=== PATIENT | female | born 1985 | race Caucasian/White ===

== ENCOUNTER 2016-04-23 12:01 | Emergency (ER) | payer SELFPAY ==
[~2016-04-23] VITALS: Ht 154.9 cm; Wt 67.5 kg
[2016-04-23 12:05] VITALS: Ht 154.9 cm; Wt 67.5 kg
--- NOTE | 2016-04-23 15:11 | RADRPT ---
PROCEDURE: US OB. CLINICAL INDICATION: . Vaginal bleeding. TECHNIQUE: Transabdominal and transvaginal imaging of the gravid uterus was performed. Images are reviewed on a high-resolution PACS workstation. COMPARISON: None available. FINDINGS: Assigned due date is 11/03/2016. Estimated gestational age by assigned due date is 12 weeks 2 days. Twin intrauterine is identified. Fetus A: Gestational mean sac diameter measures 7.7 cm. The crown-rump length equals 6.9 cm. The estimated gestational age equals 13 weeks 1 day by ultrasound criteria. Normal cardiac activity is identified with heart rate of 163 bpm. No subchorionic hemorrhage is identified. Fetus B: Gestational mean sac diameter measures 6.7 cm. The crown-rump length equals 7.3 cm. The estimated gestational age equals 13 weeks 3 days by ultrasound criteria. Normal cardiac activity is identified with heart rate of 182 bpm. No subchorionic hemorrhage is identified. The ovaries are unremarkable. IMPRESSION: 1. Twin live intrauterine pregnancies with an estimated gestational age of 13 weeks 1 day and 13 we eks 3 days by ultrasound criteria and an estimated date of delivery of 10/26/2016. RPTAT: QQ .Cali Mario MD, Date Time Electronically viewed and signed by .Cali Mario MD, on 04/23/2016 15:10 .M/
[2016-04-23 15:23] LABS: BASOPHIL # 0.1 10^3/ul (0.0-0.1); BASOPHILS % 0.4 % (0.0-2.0); EOSINOPHILS # 0.1 10^3/ul (0.0-0.5); EOSINOPHILS % 0.8 % (0.0-7.0); HEMATOCRIT 38.6 % (37.0-47.0); HEMOGLOBIN 13.2 g/dl (12.0-16.0); LYMPHOCYTES # 2.3 10^3/ul (0.8-2.9); LYMPHOCYTES % 18.3 % (15.0-51.0); MEAN CORPUSCULAR HEMOGLOBIN 29.6 pg (29.0-33.0); MEAN CORPUSCULAR HGB CONC 34.2 g/dl (32.0-37.0); MEAN CORPUSCULAR VOLUME 86.7 fl (82.0-101.0); MONOCYTE # 0.6 10^3/ul (0.3-0.9); MONOCYTES % 4.7 % (0.0-11.0); NEUTROPHIL # 9.6 10^3/ul (1.6-7.5); NEUTROPHILS % 75.8 % (39.0-77.0); PLATELET COUNT 273 10^3/UL (140-440); RED BLOOD COUNT 4.45 10^6/ul (4.20-5.40); RED CELL DISTRIBUTION WIDTH 12.9 % (11.5-14.5); UNCORRECTED WBC 12.7 10^3/ul (4.8-10.8); WHITE BLOOD COUNT 12.7 10^3/ul (4.8-10.8)
[2016-04-23 15:24] LABS: ADD UMIC YES; URINE BILIRUBIN (Dip) NEGATIVE (NEGATIVE); URINE BLOOD (Dip) 2+ (NEGATIVE); URINE COLOR LT. YELLOW (YELLOW); URINE GLUCOSE (Dip) NEGATIVE (NEGATIVE); URINE KETONES (Dip) TRACE (NEGATIVE); URINE LEUKOCYTE ESTERASE (Dip) NEGATIVE (NEGATIVE); URINE NITRITE (Dip) NEGATIVE (NEGATIVE); URINE TOTAL PROTEIN (Dip) NEGATIVE (NEGATIVE); URINE UROBILINOGEN (Dip) 0.2 E.U./dL (0.1-1.0)
[2016-04-23 15:32] LABS: CONDITION 1
[2016-04-23] MEDS ORDERED: ACET325T33 PO (15:52)
--- NOTE | 2016-04-23 15:56 | ERD ---
ER Documentation Chief Complaint Date/Time DATE: 04/23/16 TIME: 15:54 Chief Complaint pt bib family with c/o vag bleeding x 2 days 13 wk preg HPI 30-year-old female with no significant past medical history is a to the ED stating that she has slight vaginal spotting that started earlier today. Reports that she has slight pelvic cramping. States that her INFORMATION SYSTEMS OPERATOR is at the [facility]. Reports that she is having twins. Denies any abdominal pain , nausea, vomiting, chest pain, shortness of breath, vaginal discharge, dysuria , flank pain. States that her last menses was sometime in November 2015. ROS All systems reviewed and are negative except as per history of present illness. Medications Home Meds Active Scripts Acetaminophen* (Tylenol*) 325 Mg Tablet, 1 TAB PO Q8 Y for PAIN AND OR ELEVATED TEMP, #20 TAB Prov:DEANDRA STEEN PA-C 04/23/16 Allergies Allergies: Coded Allergies: No Known Allergy (Unverified , 04/23/16) PMhx/Soc Medical and Surgical Hx: pt denies Medical Hx, pt denies Surgical Hx Hx Alcohol Use: No Hx Substance Use: No Hx Tobacco Use: No Smoking Status: Never smoker Physical Exam Vitals Vital Signs Date Time Temp Pulse Resp B/P Pulse Ox O2 Delivery O2 Flow Rate FiO2 04/23/16 12:05 98.3 89 18 136/70 98 Physical Exam Const: Est-hhg-ksfhnzvch, well-nourished. In no acute distress. Head: Atraumatic, normocephalic Eyes: Normal Conjunctiva without injection. No purulent discharge. ENT: Normal external ear, nose. Moist oropharynx without tonsillar exudates. Non -erythematous pharynx. Uvula midline. No drooling. No trismus. Neck: No cervical midline tenderness. Full range of motion. No meningismus. No cervical lymphadenopathy. No JVD. Resp: Clear to auscultation bilaterally. No wheezing, rhonchi, rales, or crackles. No accessory muscle use. No retractions. Cardio: Regular rate and rhythm. No murmurs, rubs or gallops. Abd: Soft, nontender, non distended. Normal bowel sounds. No palpable masses. No rebound tenderness. No guarding. Negative McBurney's point. Negative psoas sign. Negative obturator sign. Skin: No petechiae or rashes Back: No midline tenderness. No CVA tenderness. Ext: No cyanosis, or edema. Neur: Awake and alert. Normal gait. Normal coordination. Psych: Normal Mood and Affect Result Diagram: 04/23/16 1440 Results 24 hrs Laboratory Tests Test 04/23/16 14:40 04/23/16 14:43 Basophils # 0.110^3/ul Basophils % 0.4% Eosinophils # 0.110^3/ul Eosinophils % 0.8% Hematocrit 38.6% Hemoglobin 13.2g/dl Lymphocytes # 2.310^3/ul Lymphocytes % 18.3% Mean Corpuscular Hemoglobin 29.6pg Mean Corpuscular Hemoglobin Concent 34.2g/dl Mean Corpuscular Volume 86.7fl Mean Platelet Volume 8.0fl Monocytes # 0.610^3/ul Monocytes % 4.7% Neutrophils # 9.610^3/ul Neutrophils % 75.8% Nucleated Red Blood Cells # 0.010^3/ul Nucleated Red Blood Cells % 0.0/100WBC Platelet Count 53533^3/UL Red Blood Count 4.4510^6/ul Red Cell Distribution Width 12.9% White Blood Count 12.710^3/ul Urine Bilirubin NEGATIVE Urine Clarity CLEAR Urine Color LT. YELLOW Urine Glucose NEGATIVE% Urine Hemoglobin 2+ Urine Ketones TRACE Urine Leukocyte Esterase NEGATIVE Urine Microscopic RBC Pending Urine Microscopic WBC Pending Urine Nitrite NEGATIVE Urine Specific [place] 1.010 Urine Total Protein NEGATIVE Urine Urobilinogen 0.2 E.U./dL Urine pH 6.0 Procedures/MDM This is a 30-year-old female with no significant past medical history is a presents the ED complaining of vaginal spotting. Patient is afebrile and nontoxic-appearing. Patient has normal vital signs. An ultrasound, beta-hCG, CBC, type and RH, UA was ordered to evaluate patient. CBC: No evidence of severe infection or anemia Urine: No elevation in nitrites, leukocyte esterase, hematuria. No evidence of UTI Rh: A positive No indication for Rhogam at this time. beta Hcg: PROCEDURE: US OB. CLINICAL INDICATION: . Vaginal bleeding. TECHNIQUE: Transabdominal and transvaginal imaging of the gravid uterus was performed. Images are reviewed on a high-resolution PACS workstation. COMPARISON: None available. FINDINGS: Assigned due date is 11/03/2016. Estimated gestational age by assigned due date is 12 weeks 2 days. Twin intrauterine is identified. Fetus A: Gestational mean sac diameter measures 7.7 cm. The crown-rump length equals 6.9 cm. The estimated gestational age equals 13 weeks 1 day by ultrasound criteria. Normal cardiac activity is identified with heart rate of 163 bpm. No subchorionic hemorrhage is identified. Fetus B: Gestational mean sac diameter measures 6.7 cm. The crown-rump length equals 7.3 cm. The estimated gestational age equals 13 weeks 3 days by ultrasound criteria. Normal cardiac activity is identified with heart rate of 182 bpm. No subchorionic hemorrhage is identified. The ovaries are unremarkable. IMPRESSION: 1. Twin live intrauterine pregnancies with an estimated gestational age of 13 weeks 1 day and 13 weeks 3 days by ultrasound criteria and an estimated date of delivery of 10/26/2016. Patient has twin live intrauterine is noted on her ultrasound. Patient's bleeding symptoms have stabilized while in the department. Low suspicion for symptomatic anemia, ectopic , sepsis, PID, appendicitis, ovarian torsion, tubo-ovarian abscess, surgical abdomen, or other emergent conditions. Patient was educated that there is a risk for threatened . Discharge: Tylenol Patient to follow up with INFORMATION SYSTEMS OPERATOR in 2 days for further evaluation and treatment. Patient is to return sooner to the ED for any worsening symptoms. Patient's questions were answered. Patient understood and agreed with discharge plan. Departure Diagnosis: Primary Impression: Vaginal bleeding before 22 weeks gestation Additional Impression: Twins Condition: Stable Patient Instructions: Vaginal Bleed in Referrals: [facility] YOU HAVE RECEIVED A MEDICAL SCREENING EXAM AND THE RESULTS INDICATE THAT YOU DO NOT HAVE A CONDITION THAT REQUIRES URGENT TREATMENT IN THE EMERGENCY DEPARTMENT. FURTHER EVALUATION AND TREATMENT OF YOUR CONDITION CAN WAIT UNTIL YOU ARE SEEN IN YOUR DOCTORS OFFICE WITHIN THE NEXT 1-2 DAYS. IT IS YOUR RESPONSIBILITY TO MAKE AN APPOINTMENT FOR FOLOW-UP CARE. IF YOU HAVE A PRIMARY DOCTOR --you should call your primary doctor and schedule an appointment IF YOU DO NOT HAVE A PRIMARY DOCTOR YOU CAN CALL OUR PHYSICIAN REFERRAL HOTLINE AT IF YOU CAN NOT AFFORD TO SEE A PHYSICIAN YOU CAN CHOSE FROM THE FOLLOWING [facility] [address] [facility]. [facility]818) [phone] [facility]. [facility] [address] [facility] [address] [facility]. [facility] [phone] [facility] [facility]. [address] [facility]. [facility] YOU HAVE RECEIVED A MEDICAL SCREENING EXAM AND THE RESULTS INDICATE THAT YOU DO NOT HAVE A CONDITION THAT REQUIRES URGENT TREATMENT IN THE EMERGENCY DEPARTMENT. FURTHER EVALUATION AND TREATMENT OF YOUR CONDITION CAN WAIT UNTIL YOU ARE SEEN IN YOUR DOCTORS OFFICE WITHIN THE NEXT 1-2 DAYS. IT IS YOUR RESPONSIBILITY TO MAKE AN APPOINTMENT FOR FOLOW-UP CARE. IF YOU HAVE A PRIMARY DOCTOR --you should call your primary doctor and schedule and appointment IF YOU DO NOT HAVE A PRIMARY DOCTOR YOU CAN CALL OUR PHYSICIAN REFERRAL HOTLINE AT . IF YOU CAN NOT AFFORD TO SEE A PHYSICIAN YOU CAN CHOSE FROM THE FOLLOWING [facility] INSTITUTIONS: [facility] [address] [place] [address] [facility] [address] [place] [address] [facility] [address] [place] [address] INFORMATION SYSTEMS OPER[place] [address] [facility] [address] [place], [place] [phone] OFFICE FAX [facility] [address] [place], [place] [phone] MALONE [address] [place], [place] [id number] N[place]A [place]ITTON [address] [facility], [address] [address] [address] [address] [place], [place] [phone] [facility] [address] [place] [address] [address] [facility] [id number] - DR MEHTA, GUDELIA [address], [facility] [phone] DR KIRBY, ELVIS [address] [facility]. [address], [facility] [phone] DR MCCRAY, FARID [address] [place] [address] [facility] Hours: 8:00 am - 5:00 pm Additional Instructions: Seguimiento con OB / AB INITIO ETL DEVELOPER en 2 stevenson para atencin y tratamiento adicionales Regrese a estas instalaciones si no se mejora elenita esperbamos o elenita le dijimos. DEANDRA STEEN PA-C Apr 23, 2016 15:56
[2016-04-23 16:06] LABS: SQUAMOUS EPITHELIAL CELL,UR FEW; URINE RBCS 0-2 /HPF (0)
[2016-04-23 16:40] VITALS: BP 130/65; PULSE 84; RESP 18; TEMP 98.1
== END 2016-04-23 16:40 | disposition home or self-care (01) ==
LOC: FTE 12:01
DX: O20.9 Hemorrhage in early pregnancy, unspecified (principal); O30.001 Twin pregnancy, unspecified number of placenta and unspecified number of amniotic sacs, first trimester; R10.2 Pelvic and perineal pain; Z3A.13 13 weeks gestation of pregnancy
CPT/HCPCS: 36415; 76801; 81001; 81003; 84702; 85025; 86900; 86901

== ENCOUNTER 2016-09-26 15:28 | Outpatient (CLI) | payer MEDICAID ==
[~2016-09-26] VITALS: Ht 149.9 cm; Wt 85.0 kg
[~2016-09-26 15:28] MED LIST: ACET325T33 PO
--- NOTE | 2016-09-26 16:11 | RADRPT ---
PROCEDURE: US OB biophysical profile. CLINICAL INDICATION: decreased movements TECHNIQUE: Multiple sonographic images of the pelvis were obtained. The images were reviewed on a PACS workstation. COMPARISON: No prior studies are available for comparison. FINDINGS: There is a twin viable intrauterine gestation. Twin A Cardiac activity is present with 130 beats per minute. There is a vertex presentation. The placenta is anterior. MVP = 3.1 cm Biophysical profile: movement 2/2 tone 2/2. breathing 2/2 ALEKSANDRA 2/2 Total 8/8 Twin B Cardiac activity is present with 132 beats per minute. There is a vertex presentation. The placenta is anterior. MVP = 3.7 cm Biophysical profile: movement 2/2 tone 2/2. breathing 2/2 ALEKSANDRA 2/2 Total 8/8 RPTAT: AA . IMPRESSION: Normal biophysical profile for twin gestation . . .Fletcher Bryant MD, MD Date Time Electronically viewed and signed by .Fletcher Bryant MD, MD on 09/26/2016 16:11 .S/
--- NOTE | 2016-09-26 16:15 | RADRPT ---
PROCEDURE: US OB. CLINICAL INDICATION: Size and dates , contractions TECHNIQUE: Multiple sonographic images of the pelvis were obtained. The images were reviewed on a PACS workstation. COMPARISON: No prior studies are available for comparison. FINDINGS: There is a twin viable intrauterine gestation. The placenta is anterior. There is no evidence for an abruption or placenta previa. BABY A Cardiac activity is present with 122 beats per minute. There is a vertex presentation. Measurements were made in order to determine age. The results are as follows: BPD =9.0 cm HC =31.3 cm AC =33.9 cm FL =7.1 cm The EFW = 3112 g, 84.9%. BABY B Cardiac activity is present with 148 beats per minute. There is a vertex presentation. Measurements were made in order to determine age. The results are as follows: BPD =9.1 cm HC =33.2 cm AC =34.1 cm FL =7.1 cm The EFW = 3208 g, 90.4%. Estimated gestational age of approximately 36 weeks and 4 days and 37 weeks and 1 day. The estimated date of delivery is 10/20/2016 and 10/16/2016, based on ultrasound measurements. RPTAT: AA IMPRESSION: Twin viable intrauterine gestation of approximately 36 weeks and 4 days and 37 weeks and 1 day. .Fletcher Bryant MD, MD Date Time Electronically viewed and signed by .Fletcher Bryant MD, MD on 09/26/2016 16:14 .S/
[2016-09-26 16:30] VITALS: Ht 149.9 cm; Wt 85.0 kg
[2016-09-26 16:35] VITALS: BP 118/70; PULSE 20
--- NOTE | 2016-09-26 17:25 | QN ---
Documentation Comment g1po 35 weeks twins vss exam wnl us wnl aga nst reactive a/p iup 35 weeks twins false labor [facility] KATARZYNA CARDONA MD Sep 26, 2016 17:25
--- NOTE | 2016-09-26 17:30 | TRIAGE ---
OB Triage Datetime Report Generated by CPN: 09/26/2016 17:30 Datetime: 09/26/2016 17:08 Vaginal Exam Dilatation (cms): 0.0 Effacement (%): 30 Station: -4 Exam By: MAY Vaginal Bleeding: None Cervix, Position: Posterior Datetime: 09/26/2016 17:05 Labor Evaluation Frequency: X3 Monitor Mode: External Duration (sec)2399: 60-90 Quality: Mild Pattern: Normal: <= 5 Contractions in 10 Minutes Resting Tone [place]: Relaxed Heart Rate FHR Baseline Rate: 120 Monitor Mode: External US FHR Baseline Changes: No Baseline Change Variability: Moderate 6-25 bpm Accelerations: 15X15 Decelerations: None Category: Category I Pain Assessment Pain Scale: 0 Pain Presence: None/Denies Pain Type: N/A Pain Goal: 2 Datetime: 09/26/2016 16:35 Labor Evaluation Frequency: X3 Monitor Mode: External Duration (sec)2399: 80 Quality: Mild Pattern: Normal: <= 5 Contractions in 10 Minutes Resting Tone [place]: Relaxed Heart Rate FHR Baseline Rate: 120 Monitor Mode: External US FHR Baseline Changes: No Baseline Change Variability: Moderate 6-25 bpm Accelerations: 15X15 Decelerations: Variable Category: Category I Pain Assessment Pain Scale: 0 Pain Presence: None/Denies Pain Type: N/A Pain Goal: 0 Datetime: 09/26/2016 16:27 EGA: 35.5 Datetime: 09/26/2016 16:00 Time of Arrival: 09/26/2016 15:25 Arrived By: Ambulatory Arrived From: Office Chief Complaint: SENT FROM CLINIC Movement: Present Contractions: Denies/Absent Rupture of Membranes: Denies Vaginal Bleeding: None Vaginal Discharge: Denies Recent Sexual Intercouse: Denies Abdominal Trauma: Not Applicable Patient Complaints: None Time Provider Notified: 09/26/2016 17:02 Provider Notified: VITALIY CASTILLO Initial Plan: NST, BPP, EFW Monitor Mode: External Monitor Mode: External US Pain Assessment Pain Scale: 0 Pain Presence: None/Denies Pain Type: N/A Pain Goal: 0 Membrane Status: Intact Datetime: 09/26/2016 15:43 Stage of : OB Triage
== END 2016-09-26 17:20 | disposition home or self-care (01) ==
LOC: OBT 15:28 → L-D 15:29 → OBT 17:20
PROVIDERS: ATTEND Obstetrics & Gynecology
DX: O30.003 Twin pregnancy, unspecified number of placenta and unspecified number of amniotic sacs, third trimester (principal); Z3A.35 35 weeks gestation of pregnancy
CPT/HCPCS: 76815; 76818; Z7500; G0463

== ENCOUNTER 2016-09-29 13:37 | Outpatient (CLI) | payer MEDICAID ==
[~2016-09-29] VITALS: Ht 152.4 cm; Wt 84.4 kg
[2016-09-29 13:56] VITALS: Ht 152.4 cm; Wt 84.4 kg
[2016-09-29] MEDS ORDERED: PRENAT PO (13:56)
[2016-09-29 13:57] VITALS: BP 112/62; PULSE 82; RESP 18
[2016-09-29] MEDS ORDERED: LACTATED RINGER'S 1,000 ML IV ONE (15:00)
[2016-09-29] MEDS ORDERED: LACTATED RINGER'S 1,000 ML IV SCH (15:30)
--- NOTE | 2016-09-29 16:08 | RADRPT ---
PROCEDURE: US biophysical profile. CLINICAL INDICATION: Twin gestation. Decreased motion. TECHNIQUE: Multiple sonographic images of the uterus were obtained. The images were revi ewed on a PACS workstation. COMPARISON: 09/26/2016. FINDINGS: There is a live twin intrauterine gestation. Fetus A: heart rate is 148 beats per minute. The position is cephalic. The placenta is anterior grade II. The single largest pocket of amniotic fluid is 4.1 cm. Breathing Movement: 2 Gross Body Movement: 2 Tone: 2 Qualitative Amniotic Fluid Volume: 2 TOTAL: 8 Fetus B: heart rate is 121 beats per minute. The position is breech. The placenta is anterior grade II. The single largest pocket of amniotic fluid is 3.4 cm. Breathing Movement: 2 Gross Body Movement: 2 Tone: 2 Qualitative Amniotic Fluid Volume: 2 TOTAL: 8 IMPRESSION: 1. Fetus A biophysical score is 8/8. 2. Fetus B biophysical score is 8/8. RPTAT: QQ .Santos Barba MD, MD Date Time Electronically viewed and signed by .Santos Barba MD, on 09/29/2016 16:07 .R/
--- NOTE | 2016-09-29 18:04 | CONS ---
Date/Time of Note Date/Time of Note DATE: 09/29/16 TIME: 17:56 Consultation Date/Type/Reason Admit Date/Time September 29, 2016 OB triage consult Reason for Consultation This patient is a 31 years old 1 para 0 with estimated date of confinement of October 26, 2016 which makes her 36 weeks and 1 day . This pregnancies twins and she came to triage with complaint of contractions and to rule out labor. On examination she is a well-developed well-nourished lady twins in last trimester Her general vital signs are normal with blood pressure of 112/62, pulse 62 respiration 18, temperature 96.5, She has 1+ pitting edema of her lower extremity she describes her pain at 5/10 with 10 being the highest level of pain. heart tone on both of these babies are normal On pelvic examination her cervix was closed thick and long Current Medications Medications (Trade) Dose Ordered Sig/Josh Route PRN Reason Start Time Stop Time Status Last Admin Dose Admin Lactated Ringer's 1,000 ml @ 1,000 mls/hr Q1H ONCE IV 09/29/16 15:00 09/29/16 15:59 DC 09/29/16 15:18 1,000 MLS/HR Lactated Ringer's (Lr) 1,000 ml @ 125 mls/hr Q8H IV 09/29/16 15:30 09/29/16 15:18 125 MLS/HR Constitutional: No chills, No diaphoresis, No disoriented, No febrile, No improved, No no complaints, No other, No poor po, No requiring IVF, No requiring O2 Eyes: No discharge, No no complaints, No other, No pain, No redness, No visual change ENT: No bleeding, No congestion, No discharge, No dysphagia, No no complaints, No other, No pain, No sore throat Respiratory: No cough, No no complaints, No other, No pain, No pleuritic pain, No shortness of breath, No sputum, No wheezing Cardiovascular: other (Heart normal sinus rhythm no murmur), No chest pain, No edema, No lightheadedness, No no complaints, No orthopenea , No palpitations, No paroxysmal nocturnal dyspnea Gastrointestinal: No blood, No constipation, No decreased appetite, No diarrhea , No flatus, No nausea, No no complaints, No other, No pain, No passing stool, No vomiting Genitourinary: other, No bleeding, No discharge, No dysuria, No flank pain, No hematuria, No no complaints Musculoskeletal: No back pain, No bone/joint pain, No neck pain, No no complaints, No other, No restricted range of motion, No swelling Skin: No bruising, No erythema, No laceration, No no complaints, No other, No pruritis, No rash, No skin lesions Neurologic: other (Knee-jerk reflexes normal), No confusion, No dizziness, No focal-weakness, No headache, No no complaints , No seizure, No syncope Endocrine: No dry skin, No no complaints, No other, No polydypsia, No polyuria , No temp intolerance Lymphatic: other, No adenopathy, No lymphadema, No no complaints, No tender nodes Additional Comments We have done an ultrasound study the result on fetus a was a cephalic presentation with heartbeat of 148 bpm placenta was anterior grade 2 and single largest pocket of amniotic fluid was 4.1 cm biophysical profile on this baby was 8 or 8 on baby B heartbeat 121 position was breech placenta was anterior and the largest pocket of amniotic fluid was 3.4 cm in and its biophysical profile also was 8/8 On her heart tracing on both babies the tracing were reactive with good variability and acceleration ,no sign of deceleration. There were occasional contraction every 5-10 minutes Disposition with this positive finding patient was advised to go home and to rest in case of more frequent contractions or evidence of rupture membrane return to the clinic immediately Social History Smoking Status: Never smoker Exam/Review of Systems Vital Signs Vitals Vital Signs Date Time Temp Pulse Resp B/P Pulse Ox O2 Delivery O2 Flow Rate FiO2 09/29/16 13:57 98.5 82 18 112/62 Room Air Medications Medications Current Medications Lactated Ringer's (Lr) 1,000 ml @ 125 mls/hr Q8H IV Last administered on t 15:18; Admin Dose 125 MLS/HR; Start 09/29/16 at 15:30 NOLA DECKER MD Sep 29, 2016 18:04
--- NOTE | 2016-09-29 18:41 | TRIAGE ---
OB Triage Datetime Report Generated by CPN: 09/29/2016 18:41 Datetime: 09/29/2016 17:00 Heart Rate FHR Baseline Rate: 125 Monitor Mode: External US FHR Baseline Changes: No Baseline Change Variability: Moderate 6-25 bpm Accelerations: 15X15 Decelerations: None Category: Category I Datetime: 09/29/2016 16:37 Vaginal Exam Dilatation (cms): 0.0 Effacement (%): 0 Station: -3 Exam By: AO Datetime: 09/29/2016 15:59 Heart Rate FHR Baseline Rate: 130 Monitor Mode: External US FHR Baseline Changes: No Baseline Change Variability: Moderate 6-25 bpm Accelerations: 15X15 Decelerations: None Category: Category I Datetime: 09/29/2016 15:58 Pain Assessment Pain Scale: 0 Pain Presence: Intermittent Pain Type: N/A Datetime: 09/29/2016 15:01 Labor Evaluation Frequency: irregular Monitor Mode: External Duration (sec)2399: 50-100 Quality: Moderate Pattern: Normal: <= 5 Contractions in 10 Minutes Resting Tone [place]: Relaxed Heart Rate FHR Baseline Rate: 135 Monitor Mode: External US FHR Baseline Changes: No Baseline Change Variability: Moderate 6-25 bpm Accelerations: 15X15 Decelerations: None Category: Category I Datetime: 09/29/2016 14:12 Time Provider Notified: 09/29/2016 14:12 Datetime: 09/29/2016 14:00 Assessment Type: Admission Assessment Maternal Assessment Level of Consciousness: Fully Conscious DTR's/Clonus: DTRs 2+; No Clonus Headache: Denies Blurred Vision: No Respiratory Effort: Unlabored; Regular Rhythm; Equal Expansion Breath Sounds, Left: Clear and Equal Breath Sounds, Right: Clear and Equal Nausea/Vomiting: Denies RUQ Epigastric Pain: Denies Lower Extremities Edema: Bilateral Lower Extremities Degree: 1+ Upper Extremities Edema: None Degree: None Facial Edema: None Fall Risk Assessment History of Falling: (0) No Secondary Diagnosis: (0) No Ambulatory Aid: (0) Bedrest/Nurse Assist IV Therapy: (0) No Gait: (0) Normal/Bedrest/Immobile Mental Status: (0) Oriented to Own Ability Fall Score: 0 Fall Risk Score Definition: No Risk: No action required Datetime: 09/29/2016 13:59 Time of Arrival: 09/29/2016 13:30 EGA: 36.1 Arrived By: Ambulatory Arrived From: Home Chief Complaint: UC'S SINCE 0600 Movement: Present Contractions: Irregular Time Contractions Began: 09/29/2016 06:00 Rupture of Membranes: Denies Vaginal Bleeding: None Vaginal Discharge: Denies Recent Sexual Intercouse: Denies Abdominal Trauma: Not Applicable Patient Complaints: Contractions; Cramping Time Provider Notified: 09/29/2016 14:12 Provider Notified: DR CASTILLO Initial Plan: NST, VE Datetime: 09/26/2016 16:27 EGA: 35.5
== END 2016-09-29 18:30 | disposition home or self-care (01) ==
LOC: OBT 13:37 → L-D 13:38 → OBT 18:30
PROVIDERS: ATTEND Obstetrics & Gynecology
DX: O62.9 Abnormality of forces of labor, unspecified (principal); Z3A.36 36 weeks gestation of pregnancy
CPT/HCPCS: 76818; 96365; J7120; Z7500; G0463

== ENCOUNTER 2016-10-06 20:01 | Outpatient (CLI) | payer MEDICAID ==
[~2016-10-06] VITALS: Ht 147.3 cm; Wt 87.1 kg
[~2016-10-06 20:01] MED LIST changes: -ACET325T33 PO; +PRENAT PO
[2016-10-06 20:32] VITALS: BP 121/78; PULSE 83; RESP 18; Ht 147.3 cm; Wt 87.1 kg
--- NOTE | 2016-10-06 22:30 | RADRPT ---
PROCEDURE: ULTRASOUND OBSTETRICAL CLINICAL INDICATION: 31-year-old female with twin gestation and decreased movement for size and date determination. TECHNIQUE: Multiple sonographic images of the pelvis were obtained. The images were reviewed on a PACS workstation. COMPARISON: Ultrasound OB September 29, 2016. FINDINGS: The cervix is visualized. There is a viable twin intrauterine gestation. TWIN A: Cardiac activity is present with 144 beats per minute. There is a breech maternal right presentation . Measurements were made in order to determine age. The results are as follows: BPD = 9.14 cm, HC = 33.85 cm, AC = 34.70 cm, FL = 7.22 cm. This yields and estimated gestational ag e of approximately 37 weeks 6 days. The estimated date of delivery is October 21, 2016. The EFW = 33 90 +/- 509 g (7 lb 8 oz). The GP is 80%. The placenta is anterior. There is no evidence for an abruption or placenta previa. The amniotic fluid maximal vertical pocket of 5.3 cm. TWIN B: Cardiac activity is present with 132 beats per minute. There is a breech maternal left presentation. Measurements were made in order to determine age. The results are as follows: BPD = 9.14 cm, HC = 32.78 cm, AC = 34.43 cm, FL = 6.99 cm. This yields and estimated gestational ag e of approximately 37 weeks 1 day. The estimated date of delivery is October 26, 2016. The EFW = 322 3 +/- 483 g (7 lb 2 oz). The GP is 66%. There is questionable short femoral length without signifi cant interval growth compared to the prior study however the ratios are within normal limits. The placenta is anterior. There is no evidence for an abruption or placenta previa. The amniotic fluid maximal vertical pocket is 4.7 cm. IMPRESSION: Viable twin uterine gestations. Twin B has a questionable short femoral length. .Trevon Garcia MD, Date Time Electronically viewed and signed by .Trevon Garcia MD, MD on 10/06/2016 22:29 .M/
--- NOTE | 2016-10-06 22:33 | RADRPT ---
PROCEDURE: ULTRASOUND BIOPHYSICAL PROFILE CLINICAL INDICATION: 31-year-old female with twin gestations for viability. TECHNIQUE: Multiple sonographic images were obtained in order to perform a biophysical profile The images were reviewed on a PACS workstation. COMPARISON: Ultrasound OB obtained concurrently; ultrasound biophysical profile September 29, 2016. FINDINGS: There is a viable twin intrauterine gestation. TWIN A: There is a breech maternal right presentation. Cardiac activity is present at 117 beats per minute. The placenta is anterior. The results of the biophysical profile are as follows: breathing movement = 2/2 Gross body movement = 2/2 tone = 2/2 Qualitative amniotic fluid volume = 2/2 This yields a biophysical profile score of 8/8. TWIN B: There is a breech maternal left presentation. Cardiac activity is present at 112 beats per minute. The placenta is anterior. The results of the biophysical profile are as follows: breathing movement = 2/2 Gross body movement = 2/2 tone = 2/2 Qualitative amniotic fluid volume = 2/2 This yields a biophysical profile score of 8/8. IMPRESSION: Viable twin intrauterine gestations both with biophysical profile scores of 8/8. .Trevon Garcia MD, MD Date Time Electronically viewed and signed by .Trevon Garcia MD, MD on 10/06/2016 22:32 .M/
[2016-10-06 22:34] LABS: ADD UMIC NO; UR ASCORBIC ACID NEGATIVE (NEGATIVE); UR BACTERIA FEW /HPF (NONE SEEN); UR BILIRUBIN (Dip) NEGATIVE (NEGATIVE); UR BLOOD (Dip) NEGATIVE (NEGATIVE); UR CLARITY SLIGHTLY CLOUDY (CLEAR); UR COLOR YELLOW (YELLOW); UR GLUCOSE (Dip) NEGATIVE (NEGATIVE); UR KETONES (Dip) NEGATIVE (NEGATIVE); UR LEUKOCYTE ESTERASE (Dip) NEGATIVE Leu/ul (NEGATIVE); UR NITRITE (Dip) NEGATIVE (NEGATIVE); UR RBC 1 /HPF (0-5); UR SPECIFIC GRAVITY (Dip) 1.013 (1.003-1.030); UR SQUAMOUS EPITHELIAL CELL FEW /HPF (FEW); UR TOTAL PROTEIN (Dip) NEGATIVE (NEGATIVE); UR UROBILINOGEN (Dip) NEGATIVE (NEGATIVE)
--- NOTE | 2016-10-07 00:15 | TRIAGE ---
OB Triage Datetime Report Generated by CPN: 10/07/2016 00:15 Datetime: 10/07/2016 00:00 Comments: DIFFICULT TO TRACE Datetime: 10/06/2016 23:28 Labor Evaluation Frequency: 2-5 Monitor Mode: External Duration (sec)2399: 120 Quality: Mild Pattern: Normal: <= 5 Contractions in 10 Minutes Resting Tone [place]: Relaxed Datetime: 10/06/2016 23:00 Labor Evaluation Frequency: 6-11 Monitor Mode: External Duration (sec)2399: 120 Quality: Mild Pattern: Normal: <= 5 Contractions in 10 Minutes Resting Tone [place]: Relaxed Heart Rate FHR Baseline Rate: 125 Monitor Mode: External US FHR Baseline Changes: No Baseline Change Variability: Moderate 6-25 bpm Accelerations: 15X15 Decelerations: None Category: Category I Datetime: 10/06/2016 22:00 Labor Evaluation Frequency: IRREGULAR Heart Rate FHR Baseline Rate: 125 Monitor Mode: External US FHR Baseline Changes: No Baseline Change Variability: Moderate 6-25 bpm Accelerations: 15X15 Decelerations: None Category: Category I Datetime: 10/06/2016 21:00 Labor Evaluation Frequency: 10 Monitor Mode: External Duration (sec)2399: 100 Quality: Mild Pattern: Normal: <= 5 Contractions in 10 Minutes Resting Tone [place]: Relaxed Heart Rate FHR Baseline Rate: 145 Monitor Mode: External US FHR Baseline Changes: No Baseline Change Variability: Moderate 6-25 bpm Accelerations: 15X15 Decelerations: None Category: Category I Datetime: 10/06/2016 20:50 Vaginal Exam Dilatation (cms): 0.0 Effacement (%): 0 Station: -3 Exam By: Martha PAUL RN Vaginal Bleeding: None Cervix, Consistency: Firm Cervix, Position: Posterior Datetime: 10/06/2016 20:12 Stage of : OB Triage Time of Arrival: 10/06/2016 19:53 EGA: 37.1 Arrived By: Wheelchair Arrived From: Home Chief Complaint: US Movement: Decreased Contractions: Denies/Absent Rupture of Membranes: Denies Vaginal Bleeding: None Vaginal Discharge: Denies Recent Sexual Intercouse: Denies Abdominal Trauma: Not Applicable Patient Complaints: None (Annotations: Data stored by CPN on behalf of user) Time Provider Notified: 10/06/2016 23:00 Provider Notified: DR JONES Initial Plan: CALL MD EFSwati Maternal Assessment Level of Consciousness: Fully Conscious DTR's/Clonus: DTRs 2+; No Clonus Headache: Denies Blurred Vision: No Respiratory Effort: Unlabored; Regular Rhythm; Equal Expansion Breath Sounds, Left: Clear and Equal Breath Sounds, Right: Clear and Equal Nausea/Vomiting: Denies RUQ Epigastric Pain: Denies Lower Extremities Edema: Bilateral Lower Extremities Degree: 1+ Upper Extremities Edema: None Degree: None Facial Edema: None Temperature Route: Oral Fall Risk Assessment History of Falling: (0) No Secondary Diagnosis: (0) No Ambulatory Aid: (0) Bedrest/Nurse Assist IV Therapy: (0) No Gait: (0) Normal/Bedrest/Immobile Mental Status: (0) Oriented to Own Ability Fall Score: 0 Fall Risk Score Definition: No Risk: No action required Monitor Mode: External Monitor Mode: External US Pain Assessment Pain Scale: 0 Datetime: 09/29/2016 14:00 Fall Score: 0 Fall Risk Score Definition: No Risk: No action required Datetime: 09/29/2016 13:59 EGA: 36.1 Datetime: 09/26/2016 16:27 EGA: 35.5
--- NOTE | 2016-10-07 00:28 | TRIAGE ---
OB Triage Datetime Report Generated by CPN: 10/07/2016 00:28 Datetime: 10/06/2016 23:39 Stage of : OB Triage
--- NOTE | 2016-10-07 01:26 | PN ---
Triage Information Date/Time 10/07/109 Weeks of Gestation 37weeks twin gestation BR./BR : 1 Para: 0 Diabetes: none Hypertention: none Additional information twin gestation Objective Vital Signs Date Time Temp Pulse Resp B/P Pulse Ox O2 Delivery O2 Flow Rate FiO2 10/06/16 20:32 98.5 83 18 121/78 Room Air Heart Rate: 140's Contractions: 6-10 Minutes Apart Exam 0/0/-3 EFM reactive U.C 5-7min apart Results/Medications Results 24 hrs Laboratory Tests Test 10/06/16 21:03 Urine Color YELLOW Urine Clarity SLIGHTLY CLOUDY A Urine pH 6.0 Urine Specific [place] 1.013 Urine Ketones NEGATIVE Urine Nitrite NEGATIVE Urine Bilirubin NEGATIVE Urine Urobilinogen NEGATIVE Urine Leukocyte Esterase NEGATIVE Urine Microscopic RBC 1 Urine Microscopic WBC 1 Urine Squamous Epithelial Cells FEW Urine Bacteria FEW A Urine Hemoglobin NEGATIVE Urine Glucose NEGATIVE Urine Total Protein NEGATIVE Imaging Results BPP 10/25 3390gm ALEKSANDRA 5.3 A BPP 10/25 3223gm ALEKSANDRA 4.7 B Assessment/Plan IUP 37weeks twin gestation BR/BR P: scheduled c/s on oct 26 RTO with routine labor insrtructions and in 2days f/u as rec CLIFFORD JONES MD Oct 07, 2016 01:25
== END 2016-10-06 23:40 | disposition home or self-care (01) ==
LOC: OBT 20:01 → L-D 20:02 → OBT 23:40
PROVIDERS: ATTEND Obstetrics & Gynecology
DX: O30.003 Twin pregnancy, unspecified number of placenta and unspecified number of amniotic sacs, third trimester (principal); Z3A.37 37 weeks gestation of pregnancy
CPT/HCPCS: 76815; 76818; 81001; 87086; Z7500; 81003; G0463

== ENCOUNTER 2016-10-10 16:56 | Inpatient (IN) | payer MEDICAID ==
[~2016-10-10] VITALS: Ht 137.2 cm; Wt 88.4 kg
[2016-10-10 17:44] VITALS: Ht 137.2 cm; Wt 88.4 kg
--- NOTE | 2016-10-10 18:47 | RADRPT ---
PROCEDURE: OBSTETRICAL ULTRASOUND FOR TWIN GESTATION WITH ENDOVAGINAL IMAGES CLINICAL INDICATION: TWINS, size and dates TECHNIQUE: Multiple sonographic images of the pelvis were obtained. The images were reviewed on a PACS workstation. COMPARISON: Obstetrical ultrasound from 10/06/2016 Gestational age by LMP: 37 weeks, 5 days Estimated date of delivery by LMP: 10/26/2016 FINDINGS: The cervix is not well visualized. There is a twin viable intrauterine gestation. The placenta is anterior. There is no evidence for an abruption or placenta previa. There is a subjectively normal amount of amniotic fluid. BABY A Cardiac activity is present with 154 beats per minute. There is a vertex presentation. Measurements were made in order to determine age. The results are as follows: BPD =not well visualized HC =not well visualized AC =35.16 cm FL =7.43 cm The EFW is 3603 grams (85th percentile) BABY B Cardiac activity is present with 146 beats per minute. There is a transverse presentation to maternal right. Measurements were made in order to determine age. The results are as follows: BPD =9.33 cm HC =33.10 cm AC =34.06 cm FL =7.35 cm The EFW is 3327 grams (64th percentile) Estimated gestational age by ultrasound of approximately 38 weeks, 2 days . The estimated date by ultrasound of delivery is 10/22/2016. RPTAT: AA IMPRESSION: Twin viable intrauterine gestation of approximately 38 weeks, 2 days . The estimated date of delivery by ultrasound is 10/22/2016 . Dating by ultrasound is within 4 days of dating by LMP. Anterior placenta without evidence of an abruption. The BPD and HC of Baby A are not well visualized due to cephalic presentation. Baby B demonstrates a transverse presentation to maternal right and is somewhat smaller in size, as above. Physician Tenzin Date Time Electronically viewed and signed by Physician Tenzin on 10/10/2016 18:46 RA/
[2016-10-10] MEDS ORDERED: LACTATED RINGER'S 1,000 ML IV SCH (19:49)
[2016-10-10] MEDS ORDERED: OXYTOCIN 30 UNITS/LR 500 ML IV PRN (20:00)
[2016-10-10] MEDS ORDERED: OXYTOCIN 30 UNITS/LR 500 ML IV SCH (20:00)
[2016-10-10] MEDS ORDERED: MISOPROSTOL 200 MCG TAB PR PRN (20:00)
[2016-10-10] MEDS ORDERED: CEFAZOLIN 2 GM/50 ML (PMX) 50 ML IV SCH (20:00)
[2016-10-10] MEDS ORDERED: METHYLERGONOVINE 0.2 MG INJ IM PRN (20:00)
[2016-10-10] MEDS ORDERED: CARBOPROST 250 MCG INJ IM PRN (20:00)
[2016-10-10 20:38] LABS: BASOPHILS % 0.3 % (0.0-2.0); EOSINOPHILS # 0.1 10^3/ul (0.0-0.5); EOSINOPHILS % 1.2 % (0.0-7.0); HEMATOCRIT 30.1 % (37.0-47.0); HEMOGLOBIN 10.2 g/dl (12.0-16.0); LYMPHOCYTES # 2.1 10^3/ul (0.8-2.9); LYMPHOCYTES % 27.9 % (15.0-51.0); MEAN CORPUSCULAR HEMOGLOBIN 28.7 pg (29.0-33.0); MEAN CORPUSCULAR HGB CONC 33.9 g/dl (32.0-37.0); MEAN CORPUSCULAR VOLUME 84.6 fl (82.0-101.0); MEAN PLATELET VOLUME 10.2 fl (7.4-10.4); MONOCYTE # 0.5 10^3/ul (0.3-0.9); MONOCYTES % 6.3 % (0.0-11.0); NEUTROPHIL # 4.8 10^3/ul (1.6-7.5); NEUTROPHILS % 63.9 % (39.0-77.0); PLATELET COUNT 188 10^3/UL (140-415); RED BLOOD COUNT 3.56 10^6/ul (4.20-5.40); RED CELL DISTRIBUTION WIDTH 12.4 % (11.5-14.5); WHITE BLOOD COUNT 7.6 10^3/ul (4.8-10.8)
[2016-10-10 20:56] LABS: INR 0.95; PARTIAL THROMBOPLASTIN TIME 28.6 Sec (25.0-35.0); PROTIME 12.7 Sec (12.2-14.2)
[2016-10-11] MEDS ORDERED: HYDROmorphONE 1 MG/ML SYG IV PRN ×2 (02:00)
[2016-10-11] MEDS ORDERED: morphine SULFATE/PF (10 MG/10 ML) INJ SPINAL ONE (02:00)
[2016-10-11] MEDS ORDERED: morphine 4 MG/ML VIAL IV PRN (02:00)
[2016-10-11] MEDS ORDERED: NALOXONE (0.4 MG/ML) INJ IV PRN (02:00)
[2016-10-11] MEDS ORDERED: DIPHENHYDRAMINE 50 MG INJ IV PRN (02:00)
[2016-10-11] MEDS ORDERED: EPHEDrine SULFATE 50 MG/5 ML SYG IV PRN (02:00)
[2016-10-11] MEDS ORDERED: morphine 2 MG INJ IV PRN ×3 (02:00)
[2016-10-11] MEDS ORDERED: KETOROLAC 30 MG INJ IV PRN (02:00)
[2016-10-11 03:00] VITALS: BP 126/71; PULSE 69; RESP 20
[2016-10-11] MEDS ORDERED: OXYCODONE/ACETAMINOPHEN (5/325) TAB PO PRN (03:00)
[2016-10-11 04:00] VITALS: BP 116/65; PULSE 72; RESP 18
[2016-10-11] MEDS: LACTATED RINGER'S 1,000 ML IV* SCH ×3 (06:08→19:00)
[2016-10-11] MEDS: KETOROLAC 30 MG INJ IV SCH ×3 (06:09→21:43)
--- NOTE | 2016-10-11 06:37 | HP ---
DATE OF ADMISSION: 10/10/2016 HISTORY OF PRESENT ILLNESS: Patient is 31 years old, 1, para 0 at 37 plus weeks' gestational age, twin . Bridge vertex. Admitted to labor and delivery with spontaneous rupture of membranes. PAST MEDICAL HISTORY: She denies. PAST SURGICAL HISTORY: Denied. ALLERGIES: NO KNOWN DRUG ALLERGIES (NKDA). PHYSICAL EXAM: VITAL SIGNS: Stable. GENERAL: Normal. ABDOMEN: Gravid, not tender, not descended. GENITAL: Confirms rupture of membranes, positive . Cervix found to 2 cm open. ASSESSMENT AND PLAN: Patient is 31 years old, 1, para 0, twin . Breech vertex and confirm rupture of membranes. Patient was consented for primary section. Risks and benefits discussed. Consent was signed and patient was taken to the operating room. Dictated By: Chester Miller MD /walt/sandra /Document#: [id number]
--- NOTE | 2016-10-11 06:56 | RADRPT ---
PROCEDURE: US OB CLINICAL INDICATION: decreased movements , viability TECHNIQUE: Multiple sonographic images of the pelvis were obtained. The images were reviewed on a PACS workstation. COMPARISON: 10/10/2016 FINDINGS: There is a twin viable intrauterine gestation. Twin A Cardiac activity is present with 125 beats per minute. There is a vertex presentation. The placenta is anterior. Twin B Cardiac activity is present with 125 beats per minute. There is a transverse maternal right presentation. The placenta is anterior. RPTAT: AA . IMPRESSION: Viable twin gestation . . .Fletcher Bryant MD, MD Date Time Electronically viewed and signed by .Fletcher Bryant MD, on 10/11/2016 06:55 .S/
--- NOTE | 2016-10-11 07:03 | OPR ---
DATE OF OPERATION: 10/10/2016 PREOPERATIVE DIAGNOSIS: Twin , spontaneous rupture of the membrane, 37 weeks term and breech presentation. POSTOPERATIVE DIAGNOSIS: Twin , spontaneous rupture of the membrane, 37 weeks term and breech presentation. OPERATION PERFORMED: Primary section. SURGEON: Dr. Miller. PATTERN RULER: Dr. Pennington. ANESTHESIA: Spinal. ANESTHESIOLOGIST: Dr. Bustos. COMPLICATIONS: None. ESTIMATED BLOOD LOSS: About 600 cc. OPERATIVE PROCEDURE: The patient was taken to the operating room where spinal anesthesia was found to be adequate. Patient was placed in supine position on the operating table. After prep and drape, a Pfannenstiel incision was made 2 cm above the symphysis pubis. It was extended to the underlying fascia. Fascia was nicked in the midline. Fascial incision was extended bilaterally. Fascia was from underlying muscles. Muscles in the midline. Peritoneum was entered sharply. Peritoneal incision was extended. Bladder blade was placed inside the abdominal cavity. Lower uterine segment incision was made and incision was extended. First baby was delivered breech and handed to the NICU team and 2nd baby was delivered vertex and handed to the NICU team. Cord blood sent. Placenta was removed manually. Uterus was exteriorized. Intrauterine cavity was cleaned with uterine sponges. Lower uterine segment incision was closed in 2 layers using 0 PDS sutures. Gutters were cleaned. Uterus was inserted inside the abdominal cavity. Peritoneum and muscles were approximated using 2-0 chromic sutures. Fascia was closed in a running, nonlocking fashion using 0 loop PDS sutures. Subcutaneous tissue was closed using plain sutures. The skin was closed using Monocryl sutures. Dermabond was placed on top of the incision. The patient tolerated the procedure well and was transferred to recovery room in stable condition. There was no complication regarding this procedure. Dictated By: Chester Miller MD /walt/shanthi /Document#: [id number]
[2016-10-11 08:00] VITALS: BP 117/80; PULSE 76; RESP 18
[2016-10-11] MEDS: ONDANSETRON 4 MG INJ IV PRN ×2 (09:14→15:01)
[2016-10-11 10:31] LABS: BASOPHILS % 0.1 % (0.0-2.0); EOSINOPHILS % 0.1 % (0.0-7.0); HEMATOCRIT 26.8 % (37.0-47.0); HEMOGLOBIN 9.2 g/dl (12.0-16.0); LYMPHOCYTES # 1.3 10^3/ul (0.8-2.9); LYMPHOCYTES % 11.5 % (15.0-51.0); MEAN CORPUSCULAR HEMOGLOBIN 29.1 pg (29.0-33.0); MEAN CORPUSCULAR HGB CONC 34.3 g/dl (32.0-37.0); MEAN CORPUSCULAR VOLUME 84.8 fl (82.0-101.0); MONOCYTE # 0.5 10^3/ul (0.3-0.9); MONOCYTES % 4.5 % (0.0-11.0); NEUTROPHIL # 9.2 10^3/ul (1.6-7.5); NEUTROPHILS % 83.3 % (39.0-77.0); PLATELET COUNT 188 10^3/UL (140-415); RED BLOOD COUNT 3.16 10^6/ul (4.20-5.40); RED CELL DISTRIBUTION WIDTH 12.3 % (11.5-14.5)
[2016-10-11 16:00] VITALS: BP 116/76; PULSE 78; RESP 18
[2016-10-11] MEDS ORDERED: LACTATED RINGER'S 500 ML IV ONE (18:00)
[2016-10-11] MEDS ORDERED: NA PHOSPHATE/BIPHOS 133 ML ENEMA PR ONE (19:30)
[2016-10-11 20:00] VITALS: BP 124/75; PULSE 78; RESP 18
[2016-10-11] MEDS: DEXTROSE 5%-LR 1,000 ML IV SCH (20:59)
[2016-10-12] MEDS: LACTATED RINGER'S 1,000 ML IV* SCH ×3 (00:10→19:00)
[2016-10-12 04:00] VITALS: BP 130/82; PULSE 114; RESP 18
[2016-10-12] MEDS: KETOROLAC 30 MG INJ IV SCH (06:08)
[2016-10-12] MEDS: DEXTROSE 5%-LR 1,000 ML IV SCH ×2 (07:00→16:43)
[2016-10-12 08:45] VITALS: BP 130/75; PULSE 80
[2016-10-12] MEDS ORDERED: KETOROLAC 15 MG INJ IV PRN (09:00)
[2016-10-12] MEDS ORDERED: ONDANSETRON 4 MG INJ IV PRN (09:00)
[2016-10-12] MEDS: KETOROLAC 30 MG INJ IV PRN ×2 (11:54→18:23)
[2016-10-12 12:00] VITALS: BP 117/77; PULSE 89; RESP 20
--- NOTE | 2016-10-12 14:45 | RADRPT ---
PROCEDURE: XR Abdomen. CLINICAL INDICATION: Abdominal distension TECHNIQUE: 3 AP views of the abdomen were obtained COMPARISON: None. FINDINGS: There are multiple mildly distended air filled loops of small bowel and colon with air-fluid levels on the upright view. No abnormal soft tissue calcifications are seen. The visualized portions of th e lung bases are clear. The osseous structures are unremarkable. IMPRESSION: Multiple mildly distended air filled loops of small bowel and colon with multilevel air-fluid levels on the upright view. Findings may reflect ileus or small bowel obstruction. Continued close follo w-up is advised. Consider small-bowel follow-through or CT of the abdomen pelvis for further evalua tion, as clinically indicated. RPTAT: HH .Lizette Rosen MD, MD Date Time Electronically viewed and signed by .Lizette Rosen MD, on 10/12/2016 14:45 .G/
[2016-10-12 16:00] VITALS: BP 119/75; PULSE 77; RESP 18
[2016-10-12 16:49] LABS: BASOPHILS % 0.1 % (0.0-2.0); HEMATOCRIT 28.6 % (37.0-47.0); HEMOGLOBIN 9.6 g/dl (12.0-16.0); LYMPHOCYTES # 1.5 10^3/ul (0.8-2.9); LYMPHOCYTES % 11.2 % (15.0-51.0); MEAN CORPUSCULAR HEMOGLOBIN 28.7 pg (29.0-33.0); MEAN CORPUSCULAR HGB CONC 33.6 g/dl (32.0-37.0); MEAN CORPUSCULAR VOLUME 85.6 fl (82.0-101.0); MEAN PLATELET VOLUME 10.1 fl (7.4-10.4); MONOCYTE # 0.6 10^3/ul (0.3-0.9); MONOCYTES % 4.8 % (0.0-11.0); NEUTROPHIL # 11.2 10^3/ul (1.6-7.5); NEUTROPHILS % 83.4 % (39.0-77.0); PLATELET COUNT 261 10^3/UL (140-415); RED BLOOD COUNT 3.34 10^6/ul (4.20-5.40); WHITE BLOOD COUNT 13.4 10^3/ul (4.8-10.8)
[2016-10-12 17:09] LABS: ALBUMIN 2.7 g/dl (3.3-4.9); ALBUMIN/GLOBULIN RATIO 0.84; BILIRUBIN,INDIRECT 0.3 mg/dl (0-1.1); BILIRUBIN,TOTAL 0.3 mg/dl (0.2-1.3); CREATININE 0.65 mg/dl (0.44-1.00); MAGNESIUM 1.7 mg/dl (1.7-2.5); POTASSIUM 3.9 mmol/L (3.5-5.1); TOTAL PROTEIN 5.9 g/dl (6.1-8.1)
--- NOTE | 2016-10-12 17:15 | RADRPT ---
PROCEDURE: CT Abdomen and Pelvis without contrast. CLINICAL INDICATION: Abdominal and pelvic pain. Abdominal distension. Recent section for delivery of twins. TECHNIQUE: CT scan of the abdomen and pelvis without contrast was performed. Coronal and sagittal reformatted images were obtained from the axial source images. Images were reviewed on a high-[employer] PACS workstation. Total exam DLP is 971.96 mGy-cm. CTDIvol is 17.11 mGy. One or more of the f ollowing dose reduction techniques were used: Automated exposure control, adjustment of the mA and/o r kV according to patient size, use of iterative reconstruction technique. COMPARISON: Abdomen radiograph done earlier the same day. FINDINGS: There is mild atelectasis at the lung bases posteriorly and there are small bilateral pleural effusi ons. The heart size is normal and there is no pericardial effusion. The liver is normal in size and attenuation. There is no focal hepatic lesion. The gallbladder and bile ducts are normal. The spleen is normal in size. There is no focal splenic lesion. Both adrenals are normal with no enlargement or mass. The pancreas is unremarkable with no mass or evidence of pancreatitis. There is no renal mass or hydronephrosis. There is no renal calculus or ureteral calculus. The abdominal aorta is not dilated. There is no retroperitoneal lymphadenopathy or mass. The uterus is markedly enlarged consistent with the state. There is thickening and heter ogeneity of the endometrium measuring 42 mm in thickness consistent with blood products or retained products of conception. There is probable large blood clot in the endocervical region measuring 3.5 x 4.3 cm. There is a small amount of fluid and gas in the anterior pelvic wall inferiorly related to the recen t surgery. The bladder and distal ureters are normal. The appendix appears to be in the right upper quadrant and appears normal. There is mild gas and fluid distension of the small bowel consistent with ileus. There is no defini te evidence of obstruction. There is a small amount of free fluid in the pericolic gutters and around the liver and spleen. The osseous structures are unremarkable with no fracture or lytic lesion. IMPRESSION: 1. Mild atelectasis at the lung bases posteriorly. 2. Small bilateral pleural effusions. 3. Markedly enlarged uterus consistent with the state. 4. Blood products or retained products of conception noted in the endometrium and probable large bl ood clot in the endocervical region. 5. Postoperative changes in the anterior pelvic wall. 6. Appendix appears normal but is in the right upper quadrant. 7. Probable ileus. Follow-up advised. 8. Small amount of free fluid in the abdomen. RPTAT: QQ .Santos Barba MD, Date Time Electronically viewed and signed by .Santos Barba MD, MD on 10/12/2016 17:15 .R/
[2016-10-12] MEDS ORDERED: ERYTHROMYCIN 1 GM OPH OINT ONE (18:01)
[2016-10-12] MEDS ORDERED: KETOROLAC 30 MG INJ ONE (18:01)
[2016-10-12] MEDS ORDERED: OXYTOCIN 10 UNIT INJ ONE (18:01)
[2016-10-12] MEDS ORDERED: EPHEDrine SULFATE 50 MG/5 ML SYG ONE (18:01)
[2016-10-12] MEDS ORDERED: PHYTONADIONE 1 MG/0.5 ML SYG ONE (18:01)
[2016-10-12] MEDS ORDERED: morphine SULFATE/PF (10 MG/10 ML) INJ ONE (18:01)
[2016-10-12] MEDS ORDERED: ONDANSETRON 4 MG INJ ONE (18:01)
[2016-10-12] MEDS ORDERED: METHYLERGONOVINE 0.2 MG INJ ONE (18:01)
[2016-10-12] MEDS ORDERED: OXYTOCIN 30 UNITS/LR 500 ML IV ONE ×2 (18:01)
[2016-10-12] MEDS ORDERED: METOCLOPRAMIDE 10 MG INJ ONE (18:01)
--- NOTE | 2016-10-12 19:11 | QN ---
Documentation Comment Late entry Note: 10/11/16 POD#1 Patient i stabel afebrile tolerates diet NO VB +Flatus Adequate urine VS Stable Gen NAD Abd soft NT ND Incision intact Mildly distended Genitalia No blood at perinium --->Discharge Home tomorrow ADRINA CASTILLO M.D. Oct 12, 2016 19:11
--- NOTE | 2016-10-12 19:12 | QN ---
Documentation Comment 10/12/16 POD#2 Patient i stabel afebrile tolerates diet NO VB +BM +voids VS Stable Gen NAD Abd soft NT ND Incision intact Genitalia No blood at perinium --->Discharge Home tomorrow ADRIAN CASTILLO M.D. Oct 12, 2016 19:12
--- NOTE | 2016-10-12 19:13 | DS ---
Date/Time of Note Date/Time of Note DATE: 10/12/16 TIME: 19:13 Discharge Summary Admission/Discharge Info Admit Date/Time Oct 10, 2016 at 19:40 Discharge Date/Time september Discharge Diagnosis Twin Patient Condition: Stable Procedures Primary c/section Hospital Course uneventful Home Meds Reported Medications Multivit/Min/Fol Ac/Iron/Pren* ( S*) 1 Tab Tab, 1 TAB PO DAILY, TAB 09/29/16 Primary Care Provider Care Physician No Primary Pending Labs Laboratory Tests Test 10/12/16 16:39 White Blood Count 13.410^3/ul (4.8-10.8) Red Blood Count 3.3410^6/ul (4.20-5.40) Hemoglobin 9.6g/dl (12.0-16.0) Hematocrit 28.6% (37.0-47.0) Mean Corpuscular Volume 85.6fl (82.0-101.0) Mean Corpuscular Hemoglobin 28.7pg (29.0-33.0) Mean Corpuscular Hemoglobin Concent 33.6g/dl (32.0-37.0) Red Cell Distribution Width 13.0% (11.5-14.5) Platelet Count 66491^3/UL (140-415) Mean Platelet Volume 10.1fl (7.4-10.4) Neutrophils % 83.4% (39.0-77.0) Lymphocytes % 11.2% (15.0-51.0) Monocytes % 4.8% (0.0-11.0) Eosinophils % 0.0% (0.0-7.0) Basophils % 0.1% (0.0-2.0) Nucleated Red Blood Cells % 0.0/100WBC (0.0-0.0) Neutrophils # 11.210^3/ul (1.6-7.5) Lymphocytes # 1.510^3/ul (0.8-2.9) Monocytes # 0.610^3/ul (0.3-0.9) Eosinophils # 0.010^3/ul (0.0-0.5) Basophils # 0.010^3/ul (0.0-0.1) Nucleated Red Blood Cells # 0.010^3/ul (0.0-0.0) Sodium Level 136mmol/L (135-144) Potassium Level 3.9mmol/L (3.5-5.1) Chloride Level 101mmol/L (97-110) Carbon Dioxide Level 25mmol/L (21-31) Anion Gap 14 (8-16) Blood Urea Nitrogen 13mg/dl (7-20) Creatinine 0.65mg/dl (0.44-1.00) Glucose Level 115mg/dl (70-220) Lactic Acid Level 1.4mmol/L (0.5-2.0) Calcium Level 8.0mg/dl (8.4-10.2) Magnesium Level 1.7mg/dl (1.7-2.5) Total Bilirubin 0.3mg/dl (0.2-1.3) Direct Bilirubin 0.00mg/dl (0.00-0.20) Indirect Bilirubin 0.3mg/dl (0-1.1) Aspartate Amino Transf (AST/SGOT) 32IU/L (15-46) Alanine Aminotransferase (ALT/SGPT) 31IU/L (13-69) Alkaline Phosphatase 251IU/L (42-121) Total Protein 5.9g/dl (6.1-8.1) Albumin 2.7g/dl (3.3-4.9) Globulin 3.20g/dl (1.3-3.2) Albumin/Globulin Ratio 0.84 ADRIAN CASTILLO M.D. Oct 12, 2016 19:13
[2016-10-12 20:00] VITALS: BP 117/69; PULSE 80; RESP 19
[2016-10-13] MEDS: IBUPROFEN 600 MG TAB PO PRN ×3 (00:12→11:18)
[2016-10-13 00:30] VITALS: BP 132/74; PULSE 74; RESP 19
[2016-10-13] MEDS: LACTATED RINGER'S 1,000 ML IV* SCH (03:00)
[2016-10-13 04:15] VITALS: BP 127/80; PULSE 83; RESP 83
[2016-10-13] MEDS: DEXTROSE 5%-LR 1,000 ML IV SCH (05:45)
[2016-10-13 09:07] VITALS: BP 119/68; PULSE 69; RESP 19
== END 2016-10-13 18:02 | disposition home or self-care (01) | DRG 765 ==
LOC: OBT 16:56 → L-D 16:57 → OBT 19:40 → PP1 10-11 02:48
PROVIDERS: ADMIT Obstetrics & Gynecology; ATTEND Obstetrics & Gynecology
PROC: 10D00Z1 Extraction of Products of Conception, Low, Open Approach (ICD-10-PCS; principal; 2016-10-10)
DX: O99.214 Obesity complicating childbirth (principal); Z68.42 Body mass index [BMI] 45.0-49.9, adult; E66.01 Morbid (severe) obesity due to excess calories; O32.1XX0 Maternal care for breech presentation, not applicable or unspecified; Z3A.37 37 weeks gestation of pregnancy; Z37.2 Twins, both liveborn
CPT/HCPCS: 74010; 74176; 76815; 80053; 83605; 83735; 84112; 85025; 85610; 85730; 86592; 86850; 86900; 86901; 86920; 88307; 94760; 99464; J3430; G0463; J0690; J1885; J2210; J2274; J2405; J2590; J2765; J7120; J7121